=== PATIENT | female | born 1975 | race Caucasian/White ===

== ENCOUNTER 2020-12-31 03:05 | Emergency (ER) | payer SELFPAY ==
[~2020-12-31] VITALS: Ht 170.2 cm; Wt 90.7 kg
[2020-12-31 03:10] VITALS: Ht 170.2 cm; Wt 90.7 kg
[2020-12-31] MEDS ORDERED: LANTUS SOL100 UNIT/2 SC (03:12)
[2020-12-31] MEDS ORDERED: NOVOLOG100 UNIT/1 SC (03:13)
[2020-12-31] MEDS ORDERED: ADDERALL 10 MG10 MG (03:13)
[2020-12-31] MEDS ORDERED: HYDROCODON-ACE1 EA10 PO (03:14)
[2020-12-31] MEDS ORDERED: VIT D 3 (03:14)
[2020-12-31 03:53] LABS: BASOPHILS 0.5 % (0-2); EOSINOPHILS 3.5 % (0-7); HEMATOCRIT 36.6 % (36.0-48.0); HEMOGLOBIN 11.9 g/dL (12-16); IMMATURE GRANULOCYTES 0.3 % (0-5); LYMPHOCYTE ABS# 1.89 10x3/uL (1.18-3.74); LYMPHOCYTES 24.5 % (15-50); MCH 26.3 pg (26.0-34.0); MCHC 32.5 g/dL (31.0-37.0); MCV 80.8 fL (80.0-100.0); MEAN PLATELET VOLUME 10.1 fL (7.4-10.4); MONOCYTES 7.5 % (2-11); NEUTROPHIL ABS# 4.91 10x3/uL (1.56-6.13); NEUTROPHILS 63.7 % (40-80); RBC 4.53 10x6/uL (4.00-5.40); RDW 13.7 % (11.5-14.5); WBC 7.7 10x3/uL (4.8-10.8)
[2020-12-31 03:54] LABS: PLATELET COUNT 309 10x3/uL (130-400)
[2020-12-31 03:54] LABS: NITRITE NEGATIVE (NEGATIVE)
[2020-12-31 03:57] LABS: BILIRUBIN NEGATIVE (NEGATIVE); KETONE SMALL mg/dL (NEGATIVE); UROBILINOGEN NORMAL mg/dL (< 2)
[2020-12-31 03:58] LABS: CALC OSMOLALITY 272 mosm/kg (275-300); CALCIUM 8.7 mg/dL (8.5-10.1); CARBON DIOXIDE 24.6 mmol/L (21.0-32.0); CHLORIDE - SERUM 100 mmol/L (98-107); CREATININE - SERUM 0.7 mg/dL (0.6-1.3); GLUCOSE 166 mg/dL (74-106); POTASSIUM - SERUM 3.6 mmol/L (3.5-5.1); SODIUM 135 mmol/L (136-145); UREA NITROGEN 10 mg/dL (7-18); eGFR NON AFRICAN AMERICAN > 90 mL/min (90-120)
[2020-12-31 04:06] LABS: ALBUMIN 3.8 g/dL (3.4-5.0); ALKALINE PHOSPHATASE 46 U/L (30-120); ALT (SGPT) 32 U/L (10-68); BILIRUBIN - TOTAL 0.45 mg/dL (0.2-1.3); MAGNESIUM - SERUM 1.7 mg/dL (1.8-2.4); PROTEIN - SERUM 7.7 g/dL (6.4-8.2)
[2020-12-31 04:20] LABS: TROPONIN-I < 0.017 ng/mL (0.000-0.060)
[2020-12-31 04:21] LABS: HCG URINE NEGATIVE (NEGATIVE)
[2020-12-31 05:05] VITALS: BP 155/78
== END 2020-12-31 05:05 | disposition home or self-care (01) ==
LOC: D.ER 03:05
PROVIDERS: Student in an Organized Health Care Education/Training Program
DX: R42 Dizziness and giddiness (principal); R20.2 Paresthesia of skin; E11.9 Type 2 diabetes mellitus without complications; Z79.4 Long term (current) use of insulin